=== PATIENT | male | born 1975 ===

== ENCOUNTER 2024-06-22 11:09 | Day surgery (SDC) | payer BC ==
[2024-06-18 10:55] LABS: ALBUMIN 3.5 G/DL (3.4-5.0); ANION GAP 13 (8-16); BASOPHILS # (AUTO) 0.1 X10'3 (0-0.2); BASOPHILS % (AUTO) 0.7 % (0-1); BLOOD UREA NITROGEN 45 MG/DL (7-18); BUN/CREATININE RATIO 7.4 (10.0-20.0); CALCIUM 8.9 MG/DL (8.5-10.1); CHLORIDE 102 MMOL/L (99-107); CREATININE 6.11 MG/DL (0.60-1.10); EOSINOPHILS # (AUTO) 0.2 X10'3 (0-0.9); EOSINOPHILS % (AUTO) 2.9 % (0-6); GLUCOSE 117 MG/DL (70-104); HEMATOCRIT 34.3 % (42.0-52.0); HEMOGLOBIN 11.4 g/dl (14.0-17.9); LYMPHOCYTES % (AUTO) 12.2 % (21-51); MEAN CORPUSCULAR HEMOGLOBIN 31.3 PG (27.0-31.0); MEAN CORPUSCULAR HGB CONC 33.3 g/dL (33.0-36.5); MEAN PLATELET VOLUME 6.7 FL (7.4-10.4); MONOCYTES # (AUTO) 0.5 X10'3 (0-0.9); MONOCYTES % (AUTO) 5.9 % (2-12); NEUTROPHILS # (AUTO) 6.6 X10'3 (1.8-7.7); NEUTROPHILS % (AUTO) 78.3 % (42-75); PLATELET COUNT 183 X10'3 (140-440); POTASSIUM 3.7 MMOL/L (3.5-5.1); RED BLOOD COUNT 3.65 X10'6 (4.70-6.10); SODIUM 140 MMOL/L (135-145); WHITE BLOOD COUNT 8.5 X10'3 (4.5-11.0); eGFR 10 ML/MIN
[2024-06-18 10:58] LABS: APTT 25 SECONDS (22-32); PROTHROMBIN TIME 10.5 SECONDS (9.0-12.0)
[2024-06-22] VITALS (9 sets, daily range): BP systolic 140–196; BP diastolic 78–98; PULSE 75–83; RESP 12–18; TEMP 97.5; O2SAT 94–98
[~2024-06-22] VITALS: Ht 177.8 cm; Wt 107.1 kg
[2024-06-22] MEDS ORDERED: LORazepam 0.5 MG tablet PO PRN (11:40)
[2024-06-22] MEDS ORDERED: PREG25CA19 PO (11:51)
[2024-06-22] MEDS ORDERED: HYDR100T12 PO (11:51)
[2024-06-22] MEDS ORDERED: SEMA1PEN3 (11:51)
[2024-06-22] MEDS ORDERED: NIFE-33 PO (11:51)
[2024-06-22] MEDS ORDERED: ROSU5TAB51 PO (11:51)
[2024-06-22] MEDS ORDERED: INSU100I8 SQ (11:51)
[2024-06-22] MEDS ORDERED: DOCU100C41 PO (11:51)
[2024-06-22] MEDS ORDERED: SENN-25 PO (11:51)
[2024-06-22] MEDS ORDERED: FURO80TA3 PO (11:51)
[2024-06-22] MEDS ORDERED: CHOL50CA2 PO (11:51)
[2024-06-22] MEDS ORDERED: INSU300I SQ (11:51)
[2024-06-22] MEDS ORDERED: SEVE800T28 PO (11:51)
[2024-06-22] MEDS ORDERED: LABE200T8 PO (11:51)
[2024-06-22] MEDS ORDERED: CYAN500T78 PO (11:51)
[2024-06-22] MEDS: diphenhydrAMINE 25mg capsule PO PRN (13:32)
[2024-06-22] MEDS: normal saline 1,000 ML IV SCH (13:32)
[2024-06-22] MEDS ORDERED: iohexol 350MG/ML 100ml bottle IV ONE (14:04)
[2024-06-22] MEDS ORDERED: fentaNYL/PF 50MCG/1 ML 2ML syringe ONE (14:26)
[2024-06-22] MEDS ORDERED: midazolam 1 mg/ML 2ml injection ONE (14:26)
[2024-06-22] MEDS ORDERED: LIDOcaine 1% 30ml preserv. free vial ONE (14:28)
[2024-06-22] MEDS ORDERED: hydrALAZINE 20mg/ml inj. ONE ×2 (14:36→14:40)
[2024-06-22] MEDS ORDERED: HYDROcodone/acetaminophen 5mg/325mg tablet PO PRN (15:25)
[2024-06-22] MEDS ORDERED: HYDROcodone/acetaminophen 10/325mg tab PO PRN (15:25)
== END 2024-06-22 17:00 | disposition home or self-care (01) ==
LOC: SSTAY O 11:09
PROVIDERS: ATTEND Internal Medicine Interventional Cardiology
DX: Z01.810 Encounter for preprocedural cardiovascular examination (principal); I25.10 Atherosclerotic heart disease of native coronary artery without angina pectoris; I12.0 Hypertensive chronic kidney disease with stage 5 chronic kidney disease or end stage renal disease; E11.22 Type 2 diabetes mellitus with diabetic chronic kidney disease; N18.6 End stage renal disease; E11.51 Type 2 diabetes mellitus with diabetic peripheral angiopathy without gangrene; E78.00 Pure hypercholesterolemia, unspecified; Z79.899 Other long term (current) drug therapy; Z88.8 Allergy status to other drugs, medicaments and biological substances
CPT/HCPCS: 36415; 80048; 85025; 85610; 85730; 93005; 93458; 99152; J0360; J1644; J2003; J2250; J3010; J7030; Q0163; Q9967; A6258; C1760; C1769; C1894